=== PATIENT | female | born 1980 | race Caucasian/White ===

== ENCOUNTER 2016-11-18 08:27 | Day surgery (SDC) | payer OTHER ==
--- NOTE | 2016-11-17 15:07 | HP ---
RICKI APPIAH DATE OF SURGERY: November 18, 2016 PREOPERATIVE DIAGNOSIS: 1. Pelvic pain. 2. History of endometriosis. PROCEDURE PLANNED: Laparoscopy. HISTORY OF PRESENT ILLNESS: The patient is a 36-year-old 2, para 2, woman with a diagnosis of endometriosis at age 16. She had a total abdominal hysterectomy bilateral salpingo-oophorectomy in 2009 in [place], and then she had a laparoscopy in 2010 for lysis of adhesions. She has developed constant pain since then. In November of 2015, I did a laparoscopy and showed one spot of endometriosis at the apex of her vagina. This was cauterized. She did well since then until about a month ago when she began developing sharp, constant pelvic pain. She had an ultrasound done which was normal, but the pain continues. We had a long discussion of about waiting or about referral or referral to [facility], and she wanted to repeat the laparoscopy because she got good relief from it last year. PAST MEDICAL HISTORY: She has: 1. History of endometriosis. 2. History of a thyroid cyst. 3. History of renal cyst. PAST SURGICAL HISTORY: 1. Total abdominal hysterectomy bilateral salpingo-oophorectomy. 2. Laparoscopy. MEDICATIONS: She is on: 1. Estradiol 2 mg tablet once a day. 2. Celexa 40 mg every day. 3. She also right now is needing Percocet several times a day to get through the day because of the pain. ALLERGIES: She is allergic to: 1. COMPAZINE. 2. SULFA. ALL CAUSING A RASH. FAMILY HISTORY: Family history of endometriosis. SOCIAL HISTORY: Patient is Divehi speaking. She does not smoke. REVIEW OF SYSTEMS: Patient denies any constipation, diarrhea, pain when urinating or fever or chills. PHYSICAL EXAM: GENERAL: She is a patient who appears to be uncomfortable. VITAL SIGNS: Vital signs are stable. She is afebrile. HEENT: Normal. RESPIRATORY: Lungs are clear. CARDIOVASCULAR: Normal S1 and S2. ABDOMEN: Soft, PELVIC: External genitalia and vagina are normal. She is tender in the cul-de-sac. No pelvic masses. IMPRESSION: Impression is a patient with a history of endometriosis and now a constant pelvic pain. PLAN: Plan is to do a laparoscopy in an effort to find more endometriosis and cauterize it.
[2016-11-18] MEDS ORDERED: LACTATED RINGERS 1,000 ML ONE (08:34)
[2016-11-18] MEDS ORDERED: IV START KIT ONE (08:34)
[2016-11-18] MEDS ORDERED: PROPOFOL 20 ML IV ONE (10:05)
[2016-11-18] MEDS ORDERED: FENTANYL 100 MCG/2 ML VIAL ONE ×2 (10:05→10:27)
[2016-11-18] MEDS ORDERED: ONDANSETRON 4 MG/2ML 2 ML VIAL ONE (10:05)
[2016-11-18] MEDS ORDERED: DEXAMETHASONE SOD PHOS 4 MG/1 ML VIAL ONE (10:05)
[2016-11-18] MEDS ORDERED: MIDAZOLAM HCL 1 MG/ML 2ML VIAL ONE (10:07)
[2016-11-18] MEDS ORDERED: GLYCOPYRROLATE 0.2 MG/ML 1ML VIAL ONE (10:12)
[2016-11-18] MEDS ORDERED: NEOSTIGMINE METHYLSULFATE 1 MG/ML DOSE ONE (10:12)
[2016-11-18] MEDS ORDERED: PROMETHAZINE HCL 25 MG/ML VIAL IM PRN (11:16)
[2016-11-18] MEDS ORDERED: ONDANSETRON 4 MG/2ML 2 ML VIAL IV PRN (11:16)
--- NOTE | 2016-11-18 11:21 | OP ---
Keisha Vázquez DATE: 11/18/2016 PREOPERATIVE DIAGNOSIS: History of pelvic endometriosis with pelvic pain. POSTOPERATIVE DIAGNOSIS: History of pelvic endometriosis with pelvic pain. OPERATION PREFORMED: Laparoscopy. SURGEON: Kyle Medrano M.D. FINDINGS: Patient's pelvis was normal with no lesions seen. PROCEDURE: Patient was taken to the operating room and general anesthesia was administered. She was placed in the dorsolithotomy position. Prepped and draped in the usual sterile fashion. Bimanual exam showed no masses. The urinary bladder was drained and a stick sponge was placed in the vagina. The surgeon changed gloves. A subumbilical skin incision was made with a scalpel through which a Visiport laparoscope was inserted and a pneumoperitoneum created. Some of insufflation was preperitoneal and this caused a little abnormal dissection of the abdominal cavity. More air was put into the intraabdominal cavity. There was a large peritoneal fat area right where we were going to put the second trocar in and I did not feel comfortable putting it through this, so we made a 5 mm port into the left side without complication. We used probe to remove bowel and fat around and there were no endometrial lesions. There were no adhesions. The pelvis was clean and empty. At that point, all instruments were removed. The incisions were closed with interrupted sutures of 3-0 Plain bring the fascia together and the skin together separately. Patient tolerated the procedure well and was taken to the recovery room in stable condition. All sponge, instrument, and needle counts were correct. Estimated blood loss minimal. JOB: [id number]
[2016-11-18] MEDS: FENTANYL 100 MCG/2 ML VIAL IV PRN ×2 (11:24→11:30)
[2016-11-18] MEDS ORDERED: LACTATED RINGERS 1,000 ML IV SCH (11:30)
[2016-11-18] MEDS ORDERED: MORPHINE SULFATE 4 MG/ML SYRINGE ONE (11:31)
[2016-11-18] MEDS: MORPHINE SULFATE 4 MG/ML SYRINGE IV PRN ×2 (11:34→11:38)
[2016-11-18] MEDS ORDERED: OXYCODONE/ACETAMINOPHEN 5/325 MG TABLET PO PRN (11:40)
[2016-11-18] MEDS ORDERED: MORPHINE SULFATE 2 MG/ML SYRINGE IV PRN (11:40)
== END 2016-11-18 13:01 | disposition home or self-care (01) ==
LOC: SDC 08:27
PROVIDERS: ATTEND Obstetrics & Gynecology
PROC: 0WJJ4ZZ Inspection of Pelvic Cavity, Percutaneous Endoscopic Approach (ICD-10-PCS; principal; 2016-11-18)
DX: R10.2 Pelvic and perineal pain (principal); Z87.42 Personal history of other diseases of the female genital tract; Z84.2 Family history of other diseases of the genitourinary system; Z88.2 Allergy status to sulfonamides; Z88.8 Allergy status to other drugs, medicaments and biological substances
CPT/HCPCS: 49320; J3010 ×3; J1100; J2270; A9270; J2250; J2405; J7120

== ENCOUNTER 2016-12-15 15:25 | Emergency (ER) | payer OTHER ==
[2016-12-15] MEDS ORDERED: IOPAMIDOL 370 (76%) 100 ML VIAL IV ONE (15:26)
[2016-12-15] MEDS ORDERED: KETOROLAC TROMETHAMINE 15 MG/ML VIAL ONE ×2 (15:54→17:09)
[2016-12-15 16:17] LABS: ABSOLUTE NEUTROPHIL COUNT 3.5 K/mm3 (1.8-7.7); BASO % 0.4 % (0.2-1.0); EOS # 0.2 (0.0-0.5); EOS % 2.7 % (0.9-2.9); HEMATOCRIT 41.7 % (37.0-47.0); HEMOGLOBIN 13.9 gm/l (12.0-16.0); IMM NEUT% 0.1 % (0-1); LYMPH # 3.3 (1.0-4.8); LYMPH % 44.1 % (15-45); MEAN CELL VOLUME 93.1 fl (81.0-99.0); MEAN CORPUSCULAR HGB CONC 33.3 g/dl (33.0-37.0); MEAN PLATELET VOLUME 9.6 fl (7.4-10.4); MONO # 0.4 (0.0-0.8); MONO % 5.9 % (4-12); NEUT % 46.8 % (43-75); PLATELET COUNT 317 K/mm3 (130-400); RED CELL DISTRIBUTION WIDTH 13.3 % (11.5-14.5)
[2016-12-15 16:28] LABS: ALB/GLOB RATIO 1.5 (>1.0); ALBUMIN 4.4 gm/dL (3.5-5.7); CALCIUM 9.6 mg/dL (8.6-10.3)
--- NOTE | 2016-12-15 16:37 | CT ---
Exam Type: ABD/PELVIS W/ CON Date and Time: 12/15/2016 3:50 PM Clinical information: Right lower quadrant/pelvic pain since November 18 after exploratory laparoscopy. Comparison: None Procedure: Imaging device: [employer] [address] scanner 1 mm axial images were obtained through the abdomen and pelvis. Stacked reconstructed 3, 4 and 5 mm images were photographed in the axial coronal and sagittal planes. No oral contrast was utilized for this examination. 100 ml of Isovue-370 was injected intravenously. Exam: with intravenous contrast. FINDINGS: Lung bases:The visualized lung bases appear to be appropriate with no mass, effusion or consolidation visualized. Liver: the liver is homogeneous with no discrete abnormality visualized. No definite findings of biliary dilatation are observed. Spleen: The spleen is homogeneous and does not appear to be enlarged. Gallbladder: Surgically absent. Pancreas: Normal without enlargement or evidence of adjacent inflammatory changes. Adrenal glands: Normal without enlargement or evidence of adjacent inflammatory changes. Abdominal aorta: The aorta is of normal caliber and appears to be without significant atherosclerotic disease. Kidneys: The kidneys appear to be symmetric in size with no perinephric inflammatory changes are identified. No current findings of hydronephrosis are seen. Bowel structures: The visualized bowel is of normal caliber without evidence of dilatation or obstruction. No free fluid or mesenteric inflammatory changes are identified. Appendix: The appendix is well-visualized and appears to be of normal caliber. No periappendiceal inflammatory changes or CT findings of appendicitis are currently observed. Bladder: Partially decompressed. Hernia: There is a small umbilical hernia identified. Adenopathy: No significant enlarged adenopathy is visualized. Osseous structures: There is a small sclerotic focus within the posterior aspect of the right femoral neck, likely reflecting a bone island. Pelvic structures: No discrete pelvic abnormalities are visualized in this examination. IMPRESSION: 1. A normal appearance of the appendix without current CT evidence of appendicitis. 2. No inflammatory stranding, free fluid or evidence of free air within the abdomen or pelvis. 3. A very small umbilical hernia. 4. A probable small bone island within the posterior aspect of the right femoral neck.
[2016-12-15 17:58] LABS: URINE BILIRUBIN NEGATIVE (NEGATIVE); URINE BLOOD NEGATIVE (NEGATIVE); URINE GLUCOSE (UA) NEGATIVE (NEGATIVE); URINE LEUKOCYTE ESTERASE NEGATIVE (NEGATIVE); URINE NITRITE NEGATIVE (NEGATIVE); URINE PROTEIN NEGATIVE (NEGATIVE); URINE UROBILINOGEN NORMAL (0-1 mg/dl)
[2016-12-15 18:03] LABS: URINE APPEARANCE CLEAR; URINE COLOR LIGHT YELLOW
[2016-12-15 18:17] LABS: AMPHETAMINES/METHAMPHETAMINES NEGATIVE (NEGATIVE); COCAINE NEGATIVE (NEGATIVE); MARIJUANA NEGATIVE (NEGATIVE); METHADONE NEGATIVE (NEGATIVE); OPIATES POSITIVE (NEGATIVE); TRICYCLIC ANTIDEPRESSANTS POSITIVE (NEGATIVE)
== END 2016-12-15 18:17 | disposition home or self-care (01) ==
LOC: ED 15:25
DX: R10.31 Right lower quadrant pain (principal); G89.29 Other chronic pain; N93.9 Abnormal uterine and vaginal bleeding, unspecified; N80.9 Endometriosis, unspecified; F17.210 Nicotine dependence, cigarettes, uncomplicated; Z85.42 Personal history of malignant neoplasm of other parts of uterus